=== PATIENT | female | born 1965 | race Caucasian/White ===

== ENCOUNTER 2024-11-27 09:04 | Outpatient (CLI) | payer OTHER | END 2024-11-27 09:05 | disposition home or self-care (01) | LOC: CSHSLEEP 09:04 | PROVIDERS: ATTEND Internal Medicine | DX: G47.33 Obstructive sleep apnea (adult) (pediatric) (principal); R09.02 Hypoxemia; R53.83 Other fatigue; R06.83 Snoring; E66.9 Obesity, unspecified; Z68.41 Body mass index [BMI] 40.0-44.9, adult | CPT/HCPCS: 95810 ==